=== PATIENT | male | born 1985 | race Caucasian/White ===

== ENCOUNTER 2019-10-08 06:55 | Emergency (ER) | payer SELFPAY ==
--- NOTE | 2019-10-08 07:45 | RAD REPORT ---
EXAM DESCRIPTION: CT - Stone Protocol - 10/08/2019 7:29 am CLINICAL HISTORY: Flank pain. Abd pain;Flank pain COMPARISON: No comparisons TECHNIQUE: Axial images were obtained without oral or IV contrast. Lack of contrast limits solid org an and vascular assessment. The [id number] spans the entirety of the system partially obscuring uppermost abdomen and lung bases. Coronal reformatted images were obtained and reviewed. All CT scans are performed using dose optimization technique as appropriate and may include automated exposure control or mA/KV adjustment according to patient size. FINDINGS: The lower lung goddard are clear. Imaged portions of the liver and spleen show no suspicious findings on non-contrast imaging.Several g allstones are present in the gallbladder. The pancreas and adrenal glands are normal. No pathologic l ymphadenopathy in the abdomen or pelvis. Punctate caliceal stones are present bilaterally. A small 3 mm stone is present in the proximal right ureter with mild right hydronephrosis. No bowel obstruction, free air, free fluid or abscess. Normal appendix noted. No significant bony abnormality. IMPRESSION: 3 mm stone is present in the proximal right ureter at the level of L3-4 with mild right hydronephrosis. Punctate bilateral nephrolithiasis also seen. Cholelithiasis.
[2019-10-08 07:48] LABS: Hematocrit 41.7 % (39.6-49.0); Lymphocytes % 32.1 % (15.3-44.8); MPV 10.6 fL (7.6-11.3); RBC Red Blood Cell Count 4.55 M/uL (4.33-5.43)
[2019-10-08 07:56] LABS: Potassium 4.1 mmol/L (3.5-5.1)
[2019-10-08] MEDS ORDERED: TAMSULOSIN 0.4 MG SR CAP ONE (08:12)
[2019-10-08] MEDS ORDERED: KETOROLAC 30 MG/ML INJ ONE (08:12)
[2019-10-08] MEDS ORDERED: MAGNESIUM SULFATE 1 gm IVPB 1 GM/100 ML BAG IV ONE (08:12)
[2019-10-08] MEDS ORDERED: MORPHINE 4 MG/ML SYR ONE (08:12)
[2019-10-08] MEDS ORDERED: ONDANSETRON 4 MG/2 ML VIAL ONE (08:12)
[2019-10-08] MEDS ORDERED: NA CHLORIDE 0.9% 1,000 ML ONE (08:13)
--- NOTE | 2019-10-08 09:35 | EDPHYS ---
Physician Documentation [facility] Name: Adam Murrieta Age: 33 yrs Sex: Male : 1985 Arrival Date: 10/08/2019 Time: 06:59 Bed 5 Private MD: ED Physician Landen Paniagua HPI: 10/07 07:00 This 33 yrs old Male presents to ER via Unassigned with complaints of right kb flank pain. 07:00 The patient complains of pain in the right flank. The pain radiates to the right lower kb quadrant. Onset: The symptoms/episode began/occurred this morning. Modifying factors: The symptoms are alleviated by nothing. the symptoms are aggravated by palpation/percussion. Associated signs and symptoms: The patient has no apparent associated signs or symptoms. Severity of pain: At its worst the pain was moderate in the emergency department the pain is unchanged. The patient has not experienced similar symptoms in the past. The patient has not recently seen a physician. Pt reports sudden onset right flank pain that radiates to right lower quadrant. Denies urinary symptoms. Historical: - Allergies: 07:00 No Known Allergies; rb1 - Home Meds: 07:00 None [Active]; rb1 - PMHx: 07:00 None; rb1 - PSHx: 07:00 ear repair; rb1 - Immunization history:: Adult Immunizations up to date. - Social history:: Smoking status: Patient/guardian denies using. ROS: 07:00 Constitutional: Negative for fever, chills, and weight loss, Cardiovascular: Negative kb for chest pain, palpitations, and edema, Respiratory: Negative for shortness of breath, cough, wheezing, and pleuritic chest pain, : Negative for injury, bleeding, discharge, and swelling, MS/Extremity: Negative for injury and deformity, Skin: Negative for injury, rash, and discoloration, Neuro: Negative for headache, weakness, numbness, tingling, and seizure. 07:00 Abdomen/GI: Positive for abdominal pain, Negative for nausea, vomiting, and diarrhea. 07:00 Back: Positive for flank pain, on the right. Exam: 07:00 Constitutional: This is a well developed, well nourished patient who is awake, alert, kb and in no acute distress. Head/Face: Normocephalic, atraumatic. Chest/axilla: Normal chest wall appearance and motion. Nontender with no deformity. No lesions are appreciated. Cardiovascular: Regular rate and rhythm with a normal S1 and S2. No gallops, murmurs, or rubs. Normal PMI, no JVD. No pulse deficits. Respiratory: Lungs have equal breath sounds bilaterally, clear to auscultation and percussion. No rales, rhonchi or wheezes noted. No increased work of breathing, no retractions or nasal flaring. Skin: Warm, dry with normal turgor. Normal color with no rashes, no lesions, and no evidence of cellulitis. MS/ Extremity: Pulses equal, no cyanosis. Neurovascular intact. Full, normal range of motion. Neuro: Awake and alert, GCS 15, oriented to person, place, time, and situation. Cranial nerves II-XII grossly intact. Motor strength 5/5 in all extremities. Sensory grossly intact. Cerebellar exam normal. Normal gait. 07:00 Abdomen/GI: Inspection: abdomen appears normal, Bowel sounds: normal, Palpation: soft, in all quadrants, moderate abdominal tenderness, in the right lower quadrant. 07:00 Back: CVA tenderness, that is moderate, is noted on the right. Vital Signs: 06:59 BP 123 / 78; Pulse 58; Temp 98.0; Pulse Ox 99% on R/A; tt3 07:00 Weight 105.69 kg (R); Height 5 ft. 10 in. (177.80 cm) (R); Pain 6/10; rb1 08:00 BP 118 / 73; Pulse 46; Resp 18; Pulse Ox 99% ; sv 09:00 BP 121 / 74; Pulse 59; Resp 17; Pulse Ox 100% ; rb1 10:00 BP 119 / 72; Pulse 61; Resp 18; Pulse Ox 100% ; rb1 07:00 Body Mass Index 33.43 (105.69 kg, 177.80 cm) rb1 MDM: 06:59 Patient medically screened. kb 09:34 Data reviewed: vital signs, nurses notes. Data interpreted: Pulse oximetry: on room air kb is 99 %. Interpretation: normal. Counseling: I had a detailed discussion with the patient and/or guardian regarding: the historical points, exam findings, and any diagnostic results supporting the discharge/admit diagnosis, lab results, radiology results, the need for outpatient follow up, a urologist, to return to the emergency department if symptoms worsen or persist or if there are any questions or concerns that arise at home. 10/07 06:59 Order name: Basic Metabolic Panel kb 10/07 06:59 Order name: CBC with Diff; Complete Time: 07:56 kb 10/07 06:59 Order name: CT Stone Protocol; Complete Time: 07:48 kb 10/07 07:00 Order name: Basic Metabolic Panel; Complete Time: 07:56 EDMS 10/07 09:35 Order name: Urine Dipstick--Ancillary (enter results); Complete Time: 10:16 mt 10/07 06:59 Order name: IV Saline Lock; Complete Time: 07:26 kb 10/07 06:59 Order name: Labs collected and sent; Complete Time: 07:27 kb 10/07 06:59 Order name: Urine Dipstick-Ancillary (obtain specimen); Complete Time: 10:23 kb Administered Medications: 08:12 Drug: Magnesium Sulfate 1 grams Route: IVPB; Infused Over: 1 hrs; Site: left rb1 antecubital; 08:12 Drug: TORadol 30 mg Route: IVP; Site: left antecubital; rb1 08:12 Drug: Flomax 0.4 mg Route: PO; rb1 08:12 Drug: morphine 4 mg Route: IVP; Site: left antecubital; rb1 08:12 Drug: Zofran (Ondansetron) 4 mg Route: IVP; Site: left antecubital; rb1 08:12 Drug: NS 0.9% 1000 ml Route: IV; Rate: 1000 ml; Site: left antecubital; rb1 Disposition: 10/08 07:22 Co-signature as Attending Physician, Landen Paniagua MD. [email or web address] Disposition: 10/08/19 09:35 Discharged to Home. Impression: Calculus of kidney and ureter. - Condition is Stable. - Discharge Instructions: Kidney Stones, [id number], Dietary Guidelines to Help Prevent Kidney Stones. - Prescriptions for Tylenol- Codeine #3 300-30 mg Oral Tablet - take 2 tablets by ORAL route every 6 hours As needed; 20 tablet. Zofran 4 mg Oral Tablet - take 1 tablet by ORAL route every 6 hours As needed; 20 tablet. Flomax 0.4 mg Oral Capsule, Sust. Release 24 hr - take 1 capsule by ORAL route once daily 1/2 hour following the same meal each day; 10 capsule. Diclofenac Sodium 75 mg Oral Tablet, Delayed Release (E.C.) - take 1 tablet by ORAL route 2 times per day As needed; 30 tablet. - Medication Reconciliation Form, Thank You Letter, Antibiotic Education, Prescription Opioid Use form. - Follow up: Emergency Department; When: As needed; Reason: Worsening of condition. Follow up: Private Physician; When: 2 - 3 days; Reason: Recheck today's complaints, Continuance of care, Re-evaluation by your physician. Follow up: Preet Gore MD; When: 2 - 3 days; Reason: Recheck today's complaints. Signatures: Dispatcher [employer] EDMS Shyann Phelan, ANUJ-C FRUIT GRADER OPERATOR-Dali Tucker RN RN ss Ramya Harrington RN RN rb1 Landen Paniagua MD MD [email or web address] Corrections: (The following items were deleted from the chart) 10/07 09:36 09:35 10/08/2019 09:35 Discharged to Home. Impression: Calculus of kidney and ureter. kb Condition is Stable. Forms are Medication Reconciliation Form, Thank You Letter, Antibiotic Education, Prescription Opioid Use. Follow up: Emergency Department; When: As needed; Reason: Worsening of condition. Follow up: Private Physician; When: 2 - 3 days; Reason: Recheck today's complaints, Continuance of care, Re-evaluation by your physician. kb 10:31 09:36 10/08/2019 09:35 Discharged to Home. Impression: Calculus of kidney and ureter. ss Condition is Stable. Discharge Instructions: Kidney Stones, [id number], Dietary Guidelines to Help Prevent Kidney Stones. Prescriptions for Tylenol-Codeine #3 300-30 mg Oral Tablet - take 2 tablets by ORAL route every 6 hours As needed; 20 tablet, Zofran 4 mg Oral Tablet - take 1 tablet by ORAL route every 6 hours As needed; 20 tablet, Flomax 0.4 mg Oral Capsule, Sust. Release 24 hr - take 1 capsule by ORAL route once daily 1/2 hour following the same meal each day; 10 capsule, Diclofenac Sodium 75 mg Oral Tablet, Delayed Release (E.C.) - take 1 tablet by ORAL route 2 times per day As needed; 30 tablet. and Forms are Medication Reconciliation Form, Thank You Letter, Antibiotic Education, Prescription Opioid Use. Follow up: Emergency Department; When: As needed; Reason: Worsening of condition. Follow up: Private Physician; When: 2 - 3 days; Reason: Recheck today's complaints, Continuance of care, Re-evaluation by your physician. Follow up: Preet Gore; When: 2 - 3 days; Reason: Recheck today's complaints. kb
--- NOTE | 2019-10-08 09:35 | ER ---
Nurse's Notes [facility] Name: Adam Murrieta Age: 33 yrs Sex: Male : 1985 Arrival Date: 10/08/2019 Time: 06:59 Bed 5 Private MD: Diagnosis: Calculus of kidney and ureter Presentation: 10/07 07:00 Chief complaint: EMS states: Pt. has a possible kidney stone. Vital signs are stable. [facility] administered Fentanyl 100 mcg IVP x 1 and NS 1000 ml. 07:00 Coronavirus screen: Patient reports a cough. Ebola Screen: Patient denies travel to an [facility] Ebola-affected area in the 21 days before illness onset. Initial Sepsis Screen: Does the patient meet any 2 criteria? No. Patient's initial sepsis screen is negative. Does the patient have a suspected source of infection? No. Patient's initial sepsis screen is negative. Risk Assessment: Do you want to hurt yourself or someone else? Patient reports no desire to harm self or others. Onset of symptoms was October 08, 2019 at 06:00. 07:00 Method Of Arrival: EMS: [facility] 07:00 Acuity: CATIE 3 rb1 Triage Assessment: 07:00 General: Appears uncomfortable, Behavior is calm, cooperative, Denies fever. Pain: rb1 Complains of pain in right flank Pain radiates to right lower quadrant Pain currently is 6 out of 10 on a pain scale. Pain began 0600 this morning. Neuro: Level of Consciousness is awake, alert, obeys commands, Oriented to person, place, time, situation. Cardiovascular: Capillary refill < 3 seconds. Respiratory: Airway is patent Respiratory effort is even, unlabored, Respiratory pattern is regular, symmetrical. GI: No signs and/or symptoms were reported involving the gastrointestinal system. : No signs and/or symptoms were reported regarding the genitourinary system. Derm: Skin is pink, warm \T\ dry. Historical: - Allergies: 07:00 No Known Allergies; rb1 - Home Meds: 07:00 None [Active]; rb1 - PMHx: 07:00 None; rb1 - PSHx: 07:00 ear repair; rb1 - Immunization history:: Adult Immunizations up to date. - Social history:: Smoking status: Patient/guardian denies using. Screenin:00 Abuse screen: Denies threats or abuse. Nutritional screening: No deficits noted. rb1 Tuberculosis screening: No symptoms or risk factors identified. Fall Risk None identified. Assessment: 07:00 General: See triage assessment. rb1 08:00 Reassessment: Patient appears in no apparent distress at this time. Patient and/or rb1 family updated on plan of care and expected duration. Pain level reassessed. Patient is alert, oriented x 3, equal unlabored respirations, skin warm/dry/pink. 09:00 Reassessment: Patient appears in no apparent distress at this time. Patient states rb1 symptoms have improved. 10:00 Reassessment: Patient appears in no apparent distress at this time. Patient and/or rb1 family updated on plan of care and expected duration. Pain level reassessed. Patient is alert, oriented x 3, equal unlabored respirations, skin warm/dry/pink. Vital Signs: 06:59 BP 123 / 78; Pulse 58; Temp 98.0; Pulse Ox 99% on R/A; tt3 07:00 Weight 105.69 kg (R); Height 5 ft. 10 in. (177.80 cm) (R); Pain 6/10; rb1 08:00 BP 118 / 73; Pulse 46; Resp 18; Pulse Ox 99% ; sv 09:00 BP 121 / 74; Pulse 59; Resp 17; Pulse Ox 100% ; rb1 10:00 BP 119 / 72; Pulse 61; Resp 18; Pulse Ox 100% ; rb1 07:00 Body Mass Index 33.43 (105.69 kg, 177.80 cm) rb1 ED Course: 06:59 Patient arrived in ED. kb 06:59 Shyann Phelan FNP-C is [facility]. kb 06:59 Landen Paniagua MD is Attending Physician. kb 07:00 Arm band placed on. rb1 07:00 Patient has correct armband on for positive identification. Placed in gown. Bed in low rb1 position. Call light in reach. Side rails up X 1. Pulse ox on. NIBP on. Warm blanket given. 07:00 Maintain EMS IV. Dressing intact. Good blood return noted. Site clean \T\ dry. Gauge \T\ rb 1 site: 18 G L AC. 07:12 Ramya Harrington, RN is Primary Nurse. rb1 07:15 Triage completed. rb1 07:29 CT Stone Protocol In Process Unspecified. EDMS 07:29 CT completed. Patient tolerated procedure well. Patient moved back from CT. bq 09:36 Preet Gore MD is Referral Physician. kb 10:30 No provider procedures requiring assistance completed. IV discontinued, intact, ss bleeding controlled, No redness/swelling at site. Pressure dressing applied. Administered Medications: 08:12 Drug: Magnesium Sulfate 1 grams Route: IVPB; Infused Over: 1 hrs; Site: left rb1 antecubital; 08:12 Drug: TORadol 30 mg Route: IVP; Site: left antecubital; rb1 08:12 Drug: Flomax 0.4 mg Route: PO; rb1 08:12 Drug: morphine 4 mg Route: IVP; Site: left antecubital; rb1 08:12 Drug: Zofran (Ondansetron) 4 mg Route: IVP; Site: left antecubital; rb1 08:12 Drug: NS 0.9% 1000 ml Route: IV; Rate: 1000 ml; Site: left antecubital; rb1 Outcome: 09:35 Discharge ordered by MD. kb 10:30 Discharged to home ambulatory. ss 10:30 Condition: improved 10:30 Discharge instructions given to patient, Instructed on discharge instructions, follow up and referral plans. medication usage, Demonstrated understanding of instructions, follow-up care, medications, Prescriptions given X 4. 10:31 Patient left the ED. ss Signatures: Dispatcher [employer] EDVT Shyann Phelan, MANAGER RESORT-C MANAGER RESORT-CkChely Munoz RN RN sv Quilty, Betty bq Smirch, Shelby, RN RN ss Barber, Rebecca, RN RN rb1 Rangel French tt3
[2019-10-08 10:12] LABS: Urine Blood 2+ (NEG); Urine Glucose NEGATIVE (NEG); Urine Protein NEGATIVE (NEG); Urine Specific Gravity 1.025 (1.005-1.030); Urine pH 5.5 (5.0-7.0)
[2019-10-08 10:54] VITALS: TEMP 98; O2SAT 99
[2019-10-08 10:56] VITALS: BP 118/73
== END 2019-10-08 10:31 | disposition home or self-care (01) ==
LOC: ER 06:55
DX: N20.2 Calculus of kidney with calculus of ureter (principal)
CPT/HCPCS: 36415; 74176; 76377; 80048; 81003; 85025; 96374; 96375; 99284; J2405; J3475; J7030

== ENCOUNTER 2020-02-24 13:09 | Emergency (ER) | payer SELFPAY ==
--- OUTSIDE RECORDS SUMMARY | 2020-02-24 13:12 | XMS REPORT | Continuity of Care Document ---
:1985 Author Organization [facility] t Address [address] [place] [address] Dr. Murphy[address] [place] [id number] Care Team Providers Name Role Phone Unavailable Unavailable Unavailable Problems This patient has no known problems. Allergies, Adverse Reactions, Alerts This patient has no known allergies or adverse reactions. Medications This patient has no known medications. Procedures This patient has no known procedures. Results This patient has no known results.
[2020-02-24] MEDS ORDERED: BENZONATATE 100 MG CAP PO ONE (13:49)
--- NOTE | 2020-02-24 14:16 | RAD REPORT ---
EXAM DESCRIPTION: Eulogio Single View02/24/2020 2:09 pm CLINICAL HISTORY: cough COMPARISON: none FINDINGS: The lungs appear clear of acute infiltrate. The heart is normal size IMPRESSION: No acute abnormalities displayed
--- NOTE | 2020-02-24 14:44 | ER ---
Nurse's Notes [facility] Name: Adam Murrieta Age: 34 yrs Sex: Male : 1985 Arrival Date: 02/24/2020 Time: 13:12 Bed 14 Private MD: Diagnosis: Acute bronchitis, unspecified Presentation: 02/23 13:20 Chief complaint: Patient states: Cough, SOB, body aches, fever 102 at home for 2-3 ll1 days. 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 Coronavirus screen: Client denies travel out of the [place] in the last 14 days. cough unrelated to allergies, difficulty breathing, fatigue, fever, shortness of breath, Client presents with at least one sign or symptom that may indicate coronavirus-19. Standard/surgical mask placed on the client. The client reports previous COVID testing was negative. Date of collection: February 09, 2020. Ebola Screen: Patient denies travel to an Ebola-affected area in the 21 days before illness onset. Initial Sepsis Screen: Does the patient meet any 2 criteria? No. Patient's initial sepsis screen is negative. Does the patient have a suspected source of infection? Yes: Productive cough/pneumonia. Risk Assessment: Do you want to hurt yourself or someone else? Patient reports no desire to harm self or others. Onset of symptoms was February 22, 2020. 13:20 Method Of Arrival: Ambulatory ll1 13:20 Acuity: CATIE 3 ll1 Triage Assessment: 13:22 General: Appears ill, Behavior is calm, cooperative, appropriate for age. Pain: ll1 Complains of pain in skin Pain currently is 4 out of 10 on a pain scale. Quality of pain is described as aching. Neuro: No deficits noted. Cardiovascular: No deficits noted. Respiratory: Reports shortness of breath cough that is Airway is patent Trachea midline Respiratory effort is even, unlabored, Respiratory pattern is regular, symmetrical, Onset: The symptoms/episode began/occurred 2-3 days ago, the patient has mild shortness of breath. GI: No deficits noted. Historical: - Allergies: 13:20 No Known Allergies; ll1 - PMHx: 13:20 Hypertension; ll1 - PSHx: 13:20 ear repair; ll1 - Immunization history:: Flu vaccine is not up to date. - Social history:: Smoking status: Patient denies any tobacco usage or history of. Screenin:45 Abuse screen: Denies threats or abuse. Nutritional screening: No deficits noted. Tuberculosis screening: No symptoms or risk factors identified. Fall Risk None identified. Assessment: 15:45 Respiratory: Vital Signs: 13:20 BP 145 / 93; Pulse 83; Resp 17; Temp 98.3; Pulse Ox 97% on R/A; Weight 100.7 kg; Height ll1 5 ft. 10 in. (177.80 cm); Pain 4/10; 13:20 Body Mass Index 31.85 (100.70 kg, 177.80 cm) ll1 ED Course: 13:12 Patient arrived in ED. ds1 13:17 Lavon Nesbitt PA is PHCP. cp 13:17 Rolan Atkins MD is Attending Physician. cp 13:20 Arm band placed on Patient placed in an exam room, on a stretcher. ll1 13:22 Triage completed. ll1 13:32 Leatha Torrez, RN is Primary Nurse. 14:09 XRAY Chest (1 view) In Process Unspecified. EDAR 14:45 Patient has correct armband on for positive identification. 14:45 No provider procedures requiring assistance completed. Patient did not have IV access during this emergency room visit. Administered Medications: 13:45 Drug: Tessalon Perle 200 mg Route: PO; 14:53 Follow up: Response: No adverse reaction Outcome: 14:44 Discharge ordered by MD. cp 14:45 Discharged to home ambulatory. 14:45 Condition: stable 14:45 Discharge instructions given to patient, Instructed on discharge instructions, follow up and referral plans. Demonstrated understanding of instructions, follow-up care, Prescriptions given X 4. 15:13 Patient left the ED. Addendum: 02/28/2020 08:26 Addendum: COVID-19 Result: Positive result giiven to ED physician to notify pt. b d Physician was able to contact pt and pt was notified of positive COVID-19 swab result. Physician answered pt questions. Other: pt called was given positive results by Dr Buitrago. Signatures: Dispatcher [employer] EDAR carolaMayda vargas Demi ds1 Dali Houston RN RN Lavon Nesbitt PA PA cp Harris, Amy, RN RN ah Santiago, Lynsay, RN RN ll1
--- NOTE | 2020-02-24 14:44 | EDPHYS ---
Physician Documentation [facility] Name: Adam Murrieta Age: 34 yrs Sex: Male : 1985 Arrival Date: 02/24/2020 Time: 13:12 Bed 14 Private MD: ED Physician Rolan Atkins HPI: 02/23 13:35 This 34 yrs old Male presents to ER via Ambulatory with complaints of cp Shortness Of Breath, Body Aches, Fever. 13:35 The patient has shortness of breath with light activity. Onset: The symptoms/episode cp began/occurred 3 day(s) ago. Associated signs and symptoms: Pertinent positives: non-productive cough, fever, sore throat, body aches. Severity of symptoms: in the emergency department the symptoms are unchanged despite home interventions. Patient reports close contact with employer who recently tested positive for COVID-19. Patient reports loss of taste and smell. Historical: - Allergies: 13:20 No Known Allergies; ll1 - PMHx: 13:20 Hypertension; ll1 - PSHx: 13:20 ear repair; ll1 - Immunization history:: Flu vaccine is not up to date. - Social history:: Smoking status: Patient denies any tobacco usage or history of. ROS: 13:40 Constitutional: Positive for body aches, Negative for fever, poor PO intake. cp 13:40 Eyes: Negative for injury, pain, redness, and discharge. cp 13:40 ENT: Positive for sore throat, Negative for drainage from ear(s), ear pain, difficulty swallowing, difficulty handling secretions. 13:40 Cardiovascular: Negative for chest pain, palpitations. 13:40 Respiratory: Positive for cough, "sounds productive", shortness of breath, Negative for wheezing. 13:40 Abdomen/GI: Negative for abdominal pain, nausea, vomiting, and diarrhea. 13:40 Skin: Negative for rash. 13:40 Neuro: Negative for altered mental status, headache, weakness. 13:40 All other systems are negative. Exam: 13:45 Constitutional: The patient appears in no acute distress, alert, awake, cp non-diaphoretic, non-toxic, well developed, well nourished. 13:45 Head/Face: Normocephalic, atraumatic. cp 13:45 Eyes: Periorbital structures: appear normal, Conjunctiva: normal, no exudate, no injection, Lids and lashes: appear normal, bilaterally. 13:45 ENT: External ear(s): are unremarkable, Ear canal(s): are normal, clear, TM's: dullness, bilaterally, Nose: is normal, Mouth: Lips: moist, Oral mucosa: moist, Posterior pharynx: Airway: no evidence of obstruction, patent, Tonsils: no enlargement, no exudate, erythema, that is mild, exudate, is not appreciated. 13:45 Neck: ROM/movement: is normal, is supple, no meningismus, no nuchal rigidity, Lymph nodes: no appreciated lymphadenopathy. 13:45 Chest/axilla: Inspection: normal, Palpation: is normal, no crepitus, no tenderness. 13:45 Cardiovascular: Rate: normal, Rhythm: regular. 13:45 Respiratory: the patient does not display signs of respiratory distress, Respirations: normal, no use of accessory muscles, no retractions, no splinting, no tachypnea, labored breathing, is not present, Breath sounds: decreased breath sounds, are not appreciated, stridor, is not appreciated, + upper airway congestion. wheezing: is not appreciated. 13:45 Abdomen/GI: Exam negative for discomfort, distension, guarding, Inspection: abdomen appears normal. 13:45 Skin: no rash present. 13:45 Neuro: Orientation: to person, place \\T\\ time. Mentation: is normal, Motor: moves all fours, strength is normal. Vital Signs: 13:20 BP 145 / 93; Pulse 83; Resp 17; Temp 98.3; Pulse Ox 97% on R/A; Weight 100.7 kg; Height ll1 5 ft. 10 in. (177.80 cm); Pain 4/10; 13:20 Body Mass Index 31.85 (100.70 kg, 177.80 cm) ll1 MDM: 13:21 Patient medically screened. cp 13:35 Differential diagnosis: Bronchitis pneumonia. cp 14:43 Data reviewed: vital signs, nurses notes, lab test result(s), radiologic studies, plain cp films, and as a result, I will discharge patient. 14:43 Counseling: I had a detailed discussion with the patient and/or guardian regarding: the cp historical points, exam findings, and any diagnostic results supporting the discharge/admit diagnosis, lab results, radiology results, the need for outpatient follow up, a family practitioner, to return to the emergency department if symptoms worsen or persist or if there are any questions or concerns that arise at home. 14:44 ED course: VSS. Patient appears non-toxic and no signs of respiratory distress. Will cp discharge to home for continued monitoring. 02/23 13:31 Order name: COVID-19 02/23 13:31 Order name: Flu 02/23 13:31 Order name: XRAY Chest (1 view); Complete Time: 14:19 02/23 14:19 Interpretation: Report reviewed. 02/23 13:31 Order name: Strep 02/23 13:32 Order name: CORONAVIRUS EDTN 02/23 14:26 Order name: Throat Culture EDTN 02/23 13:31 Order name: Droplet/Contact Precautions; Complete Time: 13:54 02/23 13:31 Order name: Labs collected and sent; Complete Time: 13:54 02/23 13:31 Order name: O2 Per Protocol; Complete Time: 13:54 cp Administered Medications: 13:45 Drug: Tessalon Perle 200 mg Route: PO; 14:53 Follow up: Response: No adverse reaction Disposition: 15:44 Co-signature as Attending Physician, Rolan Atkins MD. rn Disposition: 02/24/20 14:44 Discharged to Home. Impression: Acute bronchitis, unspecified. - Condition is Stable. - Discharge Instructions: Acute Bronchitis, Adult, COVID-19. - Prescriptions for Tessalon Perles 100 mg Oral Capsule - take 2 capsule by ORAL route every 8 hours As needed; 30 capsule. Zithromax Z- Hawk 250 mg Oral Tablet - take 1 tablet by ORAL route as directed for 5 days Day 1 - take two (2) tablets one time. Day 2, 3, 4 , 5 take one (1) tablet once daily.; 6 tablet. Prednisone 20 mg Oral Tablet - take 2 tablet by ORAL route once daily for 5 days; 10 tablet. Albuterol Sulfate 90 mcg/actuation - inhale 1-2 puff by INHALATION route every 4-6 hours; 1 Inhaler. - Medication Reconciliation Form, Thank You Letter, Antibiotic Education, Prescription Opioid Use form. - Follow up: Private Physician; When: 2 - 3 days; Reason: Recheck today's complaints. - Problem is new. - Symptoms have improved. Signatures: Dispatcher [employer] Rolan Denney MD MD rn Smirch, Shelby, RN RN ss Lavon Nesbitt PA PA cp Harris, Amy, RN RN ah Lewis, Lynsay, RN RN ll1 Corrections: (The following items were deleted from the chart) 13:43 13:31 Document PUI# ordered. cp 13:43 13:31 Notify [facility] Dept [phone]/ ordered. [facility] 15:13 14:44 02/24/2020 14:44 Discharged to Home. Impression: Acute bronchitis, unspecified. ss Condition is Stable. Forms are Medication Reconciliation Form, Thank You Letter, Antibiotic Education, Prescription Opioid Use. Follow up: Private Physician; When: 2 - 3 days; Reason: Recheck today's complaints. Problem is new. Symptoms have improved. cp
[2020-02-29 02:58] VITALS: BP 145/93; TEMP 98.3; O2SAT 97
== END 2020-02-24 15:13 | disposition home or self-care (01) ==
LOC: ER 13:09
DX: U07.1 COVID-19 (principal); J20.9 Acute bronchitis, unspecified; I10 Essential (primary) hypertension
CPT/HCPCS: 71045; 87070; 87081; 87804; 99283; U0002